=== PATIENT | male | born 1965 | race Caucasian/White ===

== ENCOUNTER → 2020-12-04 | Outpatient (CLI) | payer BC ==
--- NOTE | 2020-12-04 14:51 | EST ---
EXERCISE STRESS DATE OF SERVICE: 12/04/2020. INDICATION: Chest pain. AGE: 55 SEX: M HT: 5'10 " WT: 280 lbs PROTOCOL: Nam STAGE: 3 DURATION OF EXERCISE: 7:39 HEART RATE REST: 73 BLOOD PRESSURE REST: 103/51 MAXIMUM HEART RATE ACHIEVED: 148 MAXIMUM BLOOD PRESSURE: 223/73 85% MPHR: 140 100% MPHR: 165 METS: 8.9 STRESS DATA: Heart rate 73, pressure is 103/51 mmHg. The patient exercised on the treadmill according to Nam protocol for a total of 7 minutes and achieved 8 of METS. Max heart rate was 149, which is about 89% of maximum predicted heart rate. Maximum blood pressure was 223/77 mmHg. Clinically the patient developed chest discomfort in response to exercise. The EKG did not show any significant ST or T-wave abnormalities during the peak exercise. On recovery, there was about 0.[address]-segment changes noted. ECHOCARDIOGRAM IMAGES: On echocardiogram images from parasternal long axis view, parasternal short axis view, apical 4 chamber, apical 2 chambers were obtained as the baseline images, at the peak of the heart rate as well as on recovery. The echocardiogram images did not show any evidence of wall motion abnormalities concerning for ischemia. CONCLUSION: 1. Good exercise tolerance. 2. Chest discomfort in response to exercise. 3. Mild EKG changes in response to exercise. 4. Normal echocardiogram in response to exercise. MMODL / IJN: [id number] /
== END | disposition home or self-care (01) ==
LOC: RADNMMAIN 09:25
PROVIDERS: ATTEND Family Medicine
DX: R07.9 Chest pain, unspecified (principal)
CPT/HCPCS: 93351

== ENCOUNTER → 2021-07-17 | Outpatient (CLI) | payer BC ==
--- NOTE | 2021-07-17 17:21 | CT ---
EXAMINATION TYPE: CT chest angio for PE CT DLP: 770.9 mGycm, Automated exposure control for dose reduction was used. DATE OF EXAM: 07/17/2021 5:11 PM COMPARISON: None. CLINICAL INDICATION:Male, 56 years old with history of I26.90 SEPTIC PULMONARY EMBOLISM WITHOUT ACUTE COR; , chest pressure TECHNIQUE/CONTRAST: CTA scan of the thorax is performed with IV Contrast, patient injected with 100 mL of Isovue 370, pul monary embolism protocol. MIP images are created and reviewed. FINDINGS: Pulmonary Artery: There is no evidence for a filling defect within the pulmonary vasculature to sugge st acute pulmonary embolism. The pulmonary artery is of normal size. Lungs/Pleura: No evidence of focal consolidation, pleural effusion or pneumothorax. Airway: Patent and grossly unremarkable. Heart: Within normal limits for size. Vasculature: No evidence of aortic aneurysm. Mediastinum: No gross evidence of adenopathy. Musculoskeletal: Moderate degenerative disc disease changes are present throughout the thoracolumbar spine. Soft Tissues: Unremarkable. Lower neck: No significant findings. Upper Abdomen: No significant findings. IMPRESSION: No evidence of pulmonary embolism.
== END | disposition home or self-care (01) ==
LOC: RADCTMAIN 16:31
PROVIDERS: ATTEND Family Medicine
DX: Z03.89 Encounter for observation for other suspected diseases and conditions ruled out (principal)
CPT/HCPCS: 71275; Q9967

== ENCOUNTER → 2021-09-04 | Outpatient (CLI) | payer BC ==
--- NOTE | 2021-09-04 12:51 | CONS ---
CONSULTATION DATE OF SERVICE: 09/04/2021 56-year-old gentleman has been evaluated in [facility] for obstructive sleep apnea- hypopnea syndrome. HISTORY OF PRESENT ILLNESS SLEEP-WAKE EVALUATION: Patient has history of obstructive sleep apnea since 2002. He was started on treatment with CPAP at that time and the sleep study was done in [facility]. The patient was started on treatment with CPAP and used equipment every night and he moved to [place], had another sleep study there and received a new CPAP unit more than 10 years ago. He continued to use his CPAP equipment every night. SLEEP SCHEDULE: His sleep schedule from 9:00 pm to 4:00 am on weekdays and from 11 p.m. to 5 a.m. on weekends. FALLING ASLEEP: Sometimes it takes him more than 30 minutes falling asleep. He has TV set in bedroom. DURING SLEEP: He sleeps usually on the side position. While using CPAP he sleeps well, does not wake up from sleep. For the last 10 years, he increased his weight on about 40 pounds 1 2 today. Questionable history of hypnagogic hallucinations. DURING THE DAY/SLEEP WAKE EVALUATION: During the day, patient may feel sleepy. In the morning he wakes up tired, has difficulties paying attention, has problems with concentration and memory; episodes of anxiety. He referred that his sleepiness problems increased after he had COVID 19 in 2019. For the last period of time, he is on treatment with Adderall 10 mg in the morning and with this medication he feels better, less sleepy and able to be more concentrated. On the second part of the day, he feels significant sleepiness even while again using his CPAP every night. I checked his CPAP unit. It is in automatic regimen, 10-20 cm of water. Average pressure 12.8 cm of water. Usage is 30/30 nights for more than 4 hours. Average 8 hours 30 minutes, 0% leak. Apnea-hypopnea index is 1.8. The patient using AirFit 30 large nasal pillow mask. PAST MEDICAL HISTORY: Positive for headaches, bronchitis, anxiety, COVID 19 in 2019. PAST SURGICAL HISTORY: None. MEDICATIONS: Adderall 10 mg in the morning, Lexapro, . FAMILY HISTORY: Hypertension, heart problems, stroke, sleep apnea, diabetes, restless legs. REVIEW OF SYSTEMS: Without CPAP, snoring, episodes of stopped breathing. On CPAP, the patient continued to feel sleepiness during the day. PHYSICAL EXAMINATION: GENERAL: gentleman without distress. BP 131/84, HR 81, RR 16, height 5 feet 9-1/2 inches, weight 285 pounds. Body mass index 41.4, temperature 97.5, oxygen saturation at room air 95%. Oropharynx: Low position of soft palate, Mallampati 3. Big uvula. Neck is wide 19 inches in circumference. NECK: Supple, no JVD. Thyroid is not palpable. LUNGS: Clear to percussion and to auscultation. Good air exchange. No wheezing or rhonchi. HEART: S1, S2 regular. No murmurs, gallops, or rubs. ABDOMEN: Obese. Soft and nontender. Bowel sounds are present. No organomegaly appreciated. EXTREMITIES: No clubbing or cyanosis. RADIOLOGY SCHEDULER: Awake, alert, and oriented X3. Cranial nerves 2 to 7 intact. There is no fasciculation or atrophy. noted. No focal deficits observed. IMPRESSION: 1. Obstructive sleep apnea-hypopnea syndrome for more than 20 years. The patient continues to use his CPAP equipment. The patient CPAP unit is old, more than 10 years old. 2. The patient feels sleepiness during the day while using CPAP unit every night, while on treatment with Adderall, [place] Sleepiness Scale in the range of 8. Differential diagnosis should include hypersomnia and narcolepsy, questionable positive history of hypnagogic hallucinations and post COVID syndrome. 3. Headaches. 4. History of bronchitis. 5. History of anxiety. PLAN: 1. Home sleep apnea test to confirm obstructive sleep apnea-hypopnea syndrome to be sure that the patient will be able to get all necessary CPAP equipment and replace his CPAP unit. 2. Patient will need a multiple sleep latency test for objective evaluation of his symptoms of excessive daytime sleepiness for differential diagnosis with additional diagnosis of possible narcolepsy. 3. Sleep hygiene with regular time in bed for at least 8 hours. 4. Precautions related to driving. No driving if feeling sleepiness. 5. Losing weight. 6. The patient will need AirFit F30 large nasal pillow mask for the prescription of supplies. Thank you very much for referring this patient for consultation. Sincerely, Chip Florian MD, PhD, FAASM Diplomat of [employer] Sleep Medicine Board of [employer] Carrier Operator of [facility] [place] [id number] / TRUEN: [id number] /
== END ==
LOC: SLEEP 11:14
PROVIDERS: ATTEND Internal Medicine
DX: G47.33 Obstructive sleep apnea (adult) (pediatric) (principal); Z99.89 Dependence on other enabling machines and devices; R51.9 Headache, unspecified; F41.9 Anxiety disorder, unspecified; Z86.16 Personal history of COVID-19; Z87.09 Personal history of other diseases of the respiratory system; Z86.59 Personal history of other mental and behavioral disorders
CPT/HCPCS: 99211

== ENCOUNTER → 2022-01-28 | Outpatient (CLI) | payer BC ==
--- NOTE | 2022-01-28 11:09 | P.PN ---
Subjective DATE: 01/28/2022 FOLLOW UP VISIT. Patient with obstructive sleep apnea hypopnea syndrome return to sleep center for follow-up visit. Information from previous visit have been reviewed. Recently patient had home sleep apnea test which showed extremely severe obstructive sleep apnea with apnea-hypopnea index 78.2 and oxygen desaturation to 81%. After that patient had the CPAP titration with falling multiple sleep latency test. During titration at the pressure range of 12-14 cm of water respiration normalized. Multiple sleep latency status on the following day showed short sleep latency 7.1 minutes. No sleep onset REM periods have been documented. I explained results of the sleep study is to patient in details. Presently he is on treatment with Adderall 20 mg in the morning to prevent sleepiness and for ADHD. Patient is using PAP equipment every night for the whole night. The patient does not have significant problems with the mask, PAP unit and humidification. [place] sleepiness scale is 6. I checked PAP unit. Pap unit is old. PAP unit pressure from 10-20 cm H2O. Usage is 100 % for more then 4 hours, average 8 hours per night. Leak is 0 l/m, which is in acceptable range. Apnea Hypopnea Index is 2.0, which is normal. MEDICATIONS:1. Adderall 20 mg once a day 2. Lexapro 10 mg once a day 3. Quilipta 80 mg once a day During physical exam: GENERAL: A pleasant patient without any distress. VITAL SIGNS: BP 128/82, HR 76, RR 14 , weight 293.0, temperature 97.7, oxygen saturation at room air 95 % . HEENT: PERRLA, EOMI.low position of soft palate, Mallapati 3 . NECK: Supple. No JVD. LUNGS: Clear to percussion and to auscultation. Good air exchange. No wheezing or rhonchi. HEART: S1, S2 regular. ABDOMEN: Soft and nontender. Slightly obese EXTREMITIES: No clubbing or cyanosis. HARDSCAPE FOREMAN: Awake, alert, and oriented x3. No focal deficit. Impressions: 1. Obstructive sleep apnea-hypopnea syndrome. Patient demonstrated great compliance with treatment, benefiting from treatment. CPAP unit is old. 2. Multiple sleep latency test confirmed excessive daytime sleepiness. Differential diagnosis include sleepiness related to hypersomnia including narcolepsy and idiopathic hypersomnia. Also some people with obstructive sleep apnea hypopnea syndrome continued to have symptoms of sleepiness even respiration is on full control. Presently patient is on treatment with Adderall 20 mg a day which allowed him to control his alertness during the day.. 3. History of migraine. 4. History of ADHD. 5. Status post Covid 19. 6. History of anxiety. 7. History of bronchitis. 8. Periodic limb movements have been documented during the titration for 40 times per hour. Clinically no significant complaints on periodic limb movements. Plan: 1. Continue using PAP equipment every night for the whole night. A prescription was written for new CPAP unit and all necessary CPAP supplies. 2. To change air filter at least 1-2 times per month. 3. PAP unit should stay lower then position of the head. 4. Advised patient to remove all remaining water from humidifier canister daily and make it dry after each usage. Refill canister with fresh distilled water before each usage. 5. Sleep hygiene with regular time in bed for at least 8 hours. 6. Precautions related to driving. No driving if feel any sleepiness. 7. I will maintain prescription for PAP supplies including mask, tube, filters. 8. Follow up visit in 6 months or earlier if patient has any problems. 9. Watching and losing weight. 10. Please check iron profile low level of iron may increase risk for periodic limb movements. Thank you very much for allowing me to participate in the management of your patient. Chip Florian MD, PhD, FAASM. Diplomat of [employer], Sleep Medicine Board by [employer] Casting Operator Hel[facility] [place]
== END ==
LOC: SLEEP 10:00
PROVIDERS: ATTEND Internal Medicine
DX: G47.33 Obstructive sleep apnea (adult) (pediatric) (principal); G43.909 Migraine, unspecified, not intractable, without status migrainosus; F90.9 Attention-deficit hyperactivity disorder, unspecified type; Z86.16 Personal history of COVID-19; F41.9 Anxiety disorder, unspecified; Z87.09 Personal history of other diseases of the respiratory system; Z99.89 Dependence on other enabling machines and devices; Z79.899 Other long term (current) drug therapy